=== PATIENT | female | born 1970 | race Caucasian/White ===

== ENCOUNTER 2017-09-02 20:32 | Inpatient (IN) | payer OTHER ==
[~2017-09-02] VITALS: Ht 167.6 cm; Wt 60.8 kg
[2017-09-02 21:10] VITALS: BP 142/87; PULSE 83; RESP 18; TEMP 98.7; O2SAT 98
--- NOTE | 2017-09-02 21:14 | PD ---
HPI Chief Complaint: Psychiatric Symptoms Time Seen by Provider: 21:01 Travel History International Travel<30 days: No Contact w/Intl Traveler<30days: No Traveled to known affect area: No History of Present Illness HPI 47-year-old female with no significant medical history presents emergency department for evaluation of altered mental status. Patient is accompanied by her and daughter. The patient is a poor historian. She has a bizarre affect and is not making any sense when she speaks. She is talking about being a witch. She talks about [employer] GODDESSES. She tells me that she is here to heal. Per the family, patient smokes marijuana daily. She consumes alcohol occasionally. She has no psychiatric or medical history however she does have schizophrenia in her family. Patient denies any pain. Denies any recent illnesses. No other symptoms to report. PFSH Past Medical History Medical History: Denies Significant Hx Cancer: No Cardiovascular Problems: No Diabetes: No Endocrine: No Genitourinary: No Hepatitis: No Hiatal Hernia: No Immune Disorder: No Musculoskeletal: No Neurologic: No Psychiatric: No Reproductive: Yes (FIBROIDS) Respiratory: No Thyroid Disease: No : 1 Para: 1 Past Surgical History Abdominal Surgery: Yes (LAP SUE AND APPENDECTOMY) Appendectomy: Yes Body Medical Devices: NONE Cholecystectomy: Yes Social History Alcohol Use: Yes (SOCIALLY) Tobacco Use: No Allergies-Medications (Allergen,Severity, Reaction): Coded Allergies: erythromycin base (Unverified Allergy, Mild, 01/02/17) Reported Meds & Prescriptions Reported Meds & Active Scripts Active No Active Prescriptions or Reported Medications Review of Systems ROS Limitations: Altered Mental Status Except as stated in HPI: all other systems reviewed are Neg Physical Exam Exam Limitations: Altered Mental Status Narrative GENERAL: Well-nourished female patient, with bizarre affect, in no acute distress. SKIN: Focused skin assessment warm/dry. HEAD: Atraumatic. Normocephalic. EYES: Pupils equal and round. No scleral icterus. No injection or drainage. ENT: No nasal bleeding or discharge. Mucous membranes pink and moist. NECK: Trachea midline. No JVD. CARDIOVASCULAR: Regular rate and rhythm. No murmur appreciated. RESPIRATORY: No accessory muscle use. Clear to auscultation. Breath sounds equal bilaterally. GASTROINTESTINAL: Abdomen soft, non-tender, nondistended. Hepatic and splenic margins not palpable. MUSCULOSKELETAL: No obvious deformities. No clubbing. No cyanosis. No edema. NEUROLOGICAL: Awake and alert. No obvious cranial nerve deficits. Motor grossly within normal limits. Normal speech. Data Data Last Documented VS Vital Signs Date Time Temp Pulse Resp B/P (MAP) Pulse Ox O2 Delivery O2 Flow Rate FiO2 09/03/17 02:59 98.1 100 18 163/83 (109) 100 Room Air Orders Orders Complete Blood Count With Diff (09/02/17 21:01) Comprehensive Metabolic Panel (09/02/17 21:01) Thyroid Stimulating Hormone (09/02/17 21:01) Psych Screen (09/02/17 21:01) Drug Screen, Random Urine (09/02/17 21:01) Alcohol (Ethanol) (09/02/17 21:01) Ct Brain W/O Iv Contrast(Rout) (09/02/17 ) Urinalysis - C+S If Indicated (09/02/17 21:05) Potassium Chloride Powder (Kcl Powder) (09/02/17 22:30) Olanzapine Inj (Zyprexa Inj) (09/02/17 23:45) Diet Regular Basic (09/03/17 Breakfast) Labs Laboratory Tests Test 09/02/17 21:19 09/03/17 01:51 White Blood Count 8.2 TH/MM3 Red Blood Count 4.19 MIL/MM3 Hemoglobin 13.3 GM/DL Hematocrit 38.7 % Mean Corpuscular Volume 92.4 FL Mean Corpuscular Hemoglobin 31.8 PG Mean Corpuscular Hemoglobin Concent 34.4 % Red Cell Distribution Width 12.8 % Platelet Count 222 TH/MM3 Mean Platelet Volume 8.3 FL Neutrophils (%) (Auto) 80.7 % Lymphocytes (%) (Auto) 9.6 % Monocytes (%) (Auto) 9.1 % Eosinophils (%) (Auto) 0.2 % Basophils (%) (Auto) 0.4 % Neutrophils # (Auto) 6.6 TH/MM3 Lymphocytes # (Auto) 0.8 TH/MM3 Monocytes # (Auto) 0.7 TH/MM3 Eosinophils # (Auto) 0.0 TH/MM3 Basophils # (Auto) 0.0 TH/MM3 CBC Comment DIFF FINAL Differential Comment Blood Urea Nitrogen 6 MG/DL Creatinine 0.78 MG/DL Random Glucose 124 MG/DL Total Protein 7.4 GM/DL Albumin 4.3 GM/DL Calcium Level 8.6 MG/DL Alkaline Phosphatase 45 U/L Aspartate Amino Transf (AST/SGOT) 18 U/L Alanine Aminotransferase (ALT/SGPT) 21 U/L Total Bilirubin 0.9 MG/DL Sodium Level 140 MEQ/L Potassium Level 2.9 MEQ/L Chloride Level 106 MEQ/L Carbon Dioxide Level 25.1 MEQ/L Anion Gap 9 MEQ/L Estimat Glomerular Filtration Rate 79 ML/MIN Thyroid Stimulating Hormone 3rd Gen 1.530 uIU/ML Ethyl Alcohol Level LESS THAN 3 MG/DL Urine Color YELLOW Urine Turbidity CLEAR Urine pH 6.0 Urine Specific [place] 1.008 Urine Protein NEG mg/dL Urine Glucose (UA) NEG mg/dL Urine Ketones 10 mg/dL Urine Occult Blood NEG Urine Nitrite NEG Urine Bilirubin NEG Urine Urobilinogen LESS THAN 2.0 MG/DL Urine Leukocyte Esterase NEG Urine RBC 2 /hpf Urine WBC 1 /hpf Urine Squamous Epithelial Cells 8 /hpf Urine Bacteria RARE /hpf Urine Mucus FEW /lpf Microscopic Urinalysis Comment CULT NOT INDICATED Urine Opiates Screen NEG Urine Barbiturates Screen NEG Urine Amphetamines Screen NEG Urine Benzodiazepines Screen NEG Urine Cocaine Screen NEG Urine Cannabinoids Screen POS MDM Medical Decision Making Medical Screen Exam Complete: Yes Emergency Medical Condition: Yes Medical Record Reviewed: Yes Differential Diagnosis Mood disorder versus personality disorder versus electrolyte abnormality versus intracranial etiology versus substance abuse versus psychosis NOS Narrative Course 47-year-old female presents emergency department for evaluation of altered mental status. Patient appears without distress. She is a poor historian, she appears to be not connected with reality currently she is speaking about being here to heal she is talked about fictitious characters. Lab work and CT imaging the brain is ordered as patient has no reported psychiatric history. Laboratory Tests Test 09/02/17 21:19 09/03/17 01:51 White Blood Count 8.2 TH/MM3 Red Blood Count 4.19 MIL/MM3 Hemoglobin 13.3 GM/DL Hematocrit 38.7 % Mean Corpuscular Volume 92.4 FL Mean Corpuscular Hemoglobin 31.8 PG Mean Corpuscular Hemoglobin Concent 34.4 % Red Cell Distribution Width 12.8 % Platelet Count 222 TH/MM3 Mean Platelet Volume 8.3 FL Neutrophils (%) (Auto) 80.7 % Lymphocytes (%) (Auto) 9.6 % Monocytes (%) (Auto) 9.1 % Eosinophils (%) (Auto) 0.2 % Basophils (%) (Auto) 0.4 % Neutrophils # (Auto) 6.6 TH/MM3 Lymphocytes # (Auto) 0.8 TH/MM3 Monocytes # (Auto) 0.7 TH/MM3 Eosinophils # (Auto) 0.0 TH/MM3 Basophils # (Auto) 0.0 TH/MM3 CBC Comment DIFF FINAL Differential Comment Blood Urea Nitrogen 6 MG/DL Creatinine 0.78 MG/DL Random Glucose 124 MG/DL Total Protein 7.4 GM/DL Albumin 4.3 GM/DL Calcium Level 8.6 MG/DL Alkaline Phosphatase 45 U/L Aspartate Amino Transf (AST/SGOT) 18 U/L Alanine Aminotransferase (ALT/SGPT) 21 U/L Total Bilirubin 0.9 MG/DL Sodium Level 140 MEQ/L Potassium Level 2.9 MEQ/L Chloride Level 106 MEQ/L Carbon Dioxide Level 25.1 MEQ/L Anion Gap 9 MEQ/L Estimat Glomerular Filtration Rate 79 ML/MIN Thyroid Stimulating Hormone 3rd Gen 1.530 uIU/ML Ethyl Alcohol Level LESS THAN 3 MG/DL Urine Color YELLOW Urine Turbidity CLEAR Urine pH 6.0 Urine Specific [place] 1.008 Urine Protein NEG mg/dL Urine Glucose (UA) NEG mg/dL Urine Ketones 10 mg/dL Urine Occult Blood NEG Urine Nitrite NEG Urine Bilirubin NEG Urine Urobilinogen LESS THAN 2.0 MG/DL Urine Leukocyte Esterase NEG Urine RBC 2 /hpf Urine WBC 1 /hpf Urine Squamous Epithelial Cells 8 /hpf Urine Bacteria RARE /hpf Urine Mucus FEW /lpf Microscopic Urinalysis Comment CULT NOT INDICATED Urine Opiates Screen NEG Urine Barbiturates Screen NEG Urine Amphetamines Screen NEG Urine Benzodiazepines Screen NEG Urine Cocaine Screen NEG Urine Cannabinoids Screen POS Patient was in CT and she jumped out of the machine and ran out of the room. She is very agitated and anxious. Patient will be medicated to help her to calm down so CT can be ordered for medical clearance. Patient has tried to leave. Patient is unable to determine if further evaluation is necessary and if she does leave she poses great risk of harm to herself. She will be placed under Mason act at this time. Last Impressions Head CT 09/02/17 0000 Signed Impressions: Service Date/Time: Sunday, September 03, 2017 00:43 - CONCLUSION: Negative noncontrast head CT. Nik Navas MD Findings are discussed with the family. Patient is medically cleared to undergo psychiatric screening for further evaluation and disposition. Diagnosis Primary Impression: Unspecified psychosis Scripts No Active Prescriptions or Reported Meds Condition: Stable Megan Hinkle Sep 02, 2017 21:14
[2017-09-02 21:40] LABS: AUTOMATED NEUTROPHIL # 6.6 TH/MM3 (1.8-7.7); BASOPHIL % 0.4 % (0.0-2.0); EOSINOPHIL % 0.2 % (0.0-4.0); HEMATOCRIT 38.7 % (35.0-46.0); HEMOGLOBIN 13.3 GM/DL (11.6-15.3); LYMPH % 9.6 % (9.0-44.0); LYMPHOCYTE # 0.8 TH/MM3 (1.0-4.8); MEAN CELL VOLUME 92.4 FL (80.0-100.0); MEAN CORPUSCULAR HEMOGLOBIN 31.8 PG (27.0-34.0); MEAN CORPUSCULAR HGB CONC 34.4 % (32.0-36.0); MEAN PLATELET VOLUME 8.3 FL (7.0-11.0); MONO % 9.1 % (0.0-8.0); MONOCYTE # 0.7 TH/MM3 (0-0.9); NEUT % 80.7 % (16.0-70.0); PLATELET COUNT 222 TH/MM3 (150-450); RED BLOOD COUNT 4.19 MIL/MM3 (4.00-5.30); RED CELL DISTRIBUTION WIDTH 12.8 % (11.6-17.2); WHITE BLOOD COUNT 8.2 TH/MM3 (4.0-11.0)
[2017-09-02 21:59] LABS: ALBUMIN 4.3 GM/DL (3.4-5.0); AST (GOT) 18 U/L (15-37); BICARBONATE 25.1 MEQ/L (21.0-32.0); BLOOD UREA NITROGEN 6 MG/DL (7-18); CALCIUM 8.6 MG/DL (8.5-10.1); CHLORIDE 106 MEQ/L (98-107); CREATININE 0.78 MG/DL (0.50-1.00); GLOMERULAR FILTRATION RATE 79 ML/MIN (>89); GLUCOSE,RANDOM 124 MG/DL (74-106); SODIUM (NA) 140 MEQ/L (136-145)
[2017-09-02 22:06] LABS: ALKALINE PHOSPHATASE 45 U/L (45-117); ALT (GPT) 21 U/L (10-53); TOTAL BILIRUBIN ADULT 0.9 MG/DL (0.2-1.0); TOTAL PROTEIN 7.4 GM/DL (6.4-8.2)
[2017-09-02] MEDS ORDERED: POTASSIUM CHLORIDE 20 MEQ PWD PACKET PO ONE (22:30)
[2017-09-02] MEDS ORDERED: OLANZapine IM 10 MG VIAL IM ONE (23:45)
--- NOTE | 2017-09-03 00:52 | RADRPT ---
EXAM DATE/TIME: 09/03/2017 00:43 [facility] COMPARISON: No previous studies available for comparison. INDICATIONS : Altered mental status. RADIATION DOSE: 35.14 CTDIvol (mGy) MEDICAL HISTORY : None SURGICAL HISTORY : None. ENCOUNTER: Initial ACUITY: 1 day PAIN SCALE: 0/10 LOCATION: cranial TECHNIQUE: Multiple contiguous axial images were obtained of the head. Using automated exposure control and adj ustment of the mA and/or kV according to patient size, radiation dose was kept as low as reasonably a chievable to obtain optimal diagnostic quality images. DICOM format image data is available electro nically for review and comparison. FINDINGS: CEREBRUM: The ventricles are normal for age. No evidence of midline shift, mass lesion, hemorrhage or acute in farction. No extra-axial fluid collections are seen. POSTERIOR FOSSA: The cerebellum and brainstem are intact. The 4th ventricle is midline. The cerebellopontine angle i s unremarkable. EXTRACRANIAL: The visualized portion of the orbits is intact. SKULL: The calvaria is intact. No evidence of skull fracture. CONCLUSION: Negative noncontrast head CT. Nik Navas MD on September 03, 2017 at 0:50 Board Certified Radiologist. This report was verified electronically.
[2017-09-03 02:00] LABS: BACTERIA, URINE RARE /hpf; BILIRUBIN, URINE NEG (NEG); BLOOD, URINE NEG (NEG); GLUCOSE,URINE NEG (NEG); KETONE, URINE 10 mg/dL (NEG); MUCUS URINE FEW /lpf (OCC); NITRITE,URINE NEG (NEG); SQUAMOUS EPITHELIAL CELL URINE 8 /hpf (0-5); URINE COLOR YELLOW (YELLW/STRAW); URINE LEUKOCYTE ESTERASE NEG (NEG)
[2017-09-03 02:59] VITALS: BP 163/83; PULSE 100; RESP 18; TEMP 98.1; O2SAT 100
[2017-09-03 06:52] VITALS: BP 127/74; PULSE 88; RESP 18; TEMP 98.6; O2SAT 99
[2017-09-03] MEDS ORDERED: MAGNESIUM HYDROXIDE SUSP 30 ML CUP PO PRN (09:30)
[2017-09-03] MEDS ORDERED: ACETAMINOPHEN 325 MG TAB PO PRN (09:30)
[2017-09-03] MEDS ORDERED: NICOTINE 21 MG/24 HR PATCH T-DERMAL PRN (09:30)
[2017-09-03] MEDS ORDERED: hydrOXYzine HCL 50 MG TAB PO PRN (09:30)
[2017-09-03] MEDS ORDERED: ALUMINUM/MAGNESIUM/SIMETH 30 ML CUP PO PRN (09:30)
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
[2017-09-03 11:01] VITALS: BP 139/82; PULSE 86; RESP 16; TEMP 98.4; O2SAT 97
[2017-09-03 18:01] LABS: BICARBONATE 27.3 MEQ/L (21.0-32.0); CALCIUM 9.5 MG/DL (8.5-10.1); CREATININE 0.97 MG/DL (0.50-1.00); MAGNESIUM 2.1 MG/DL (1.5-2.5)
[2017-09-03 18:06] VITALS: BP 127/87; PULSE 95; RESP 18; TEMP 98.6; O2SAT 94
[2017-09-03] MEDS: diphenhydrAMINE HCL 50 MG CAP PO PRN (21:26)
[2017-09-04 05:52] VITALS: BP 131/89; PULSE 75; TEMP 98.4; O2SAT 99
[2017-09-04] MEDS ORDERED: CYANOCOBALAMIN 1000 MCG/ML VIAL IM ONE (07:15)
[2017-09-04 07:26] LABS: CHOLESTEROL 136 MG/DL (120-200)
[2017-09-04 07:30] LABS: CHOLESTEROL/ HDL RATIO 1.69 RATIO; HDL CHOLESTEROL 80.4 MG/DL (40.0-60.0); LDL CHOLESTEROL 44 MG/DL (0-99); TRIGLYCERIDES 56 MG/DL (42-150)
[2017-09-04 10:36] LABS: HEMOGLOBIN A1C 5.1 % (4.3-6.0)
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
--- NOTE | 2017-09-04 15:44 | PD.CONS ---
HPI Service [facility] Consult Requested By Reason for Consult Further workup of vitamin B12 deficiency Primary Care Physician Derik Dalton MD Diagnoses: History of Present Illness Written by Carson Duarte, acting as scribe for Dr. Campoverde on 09/04/17 at 15:43. 47-year-old female with relatively no past medical history who presented to the emergency department on 09/02 accompanied by and daughter with reports of altered mental status. According to ER documentation patient had been talking about amazonians and goddesses. She has been admitted to medical psychiatry unit for further evaluation, [facility] consulted due to low vitamin D. Patient seen and examined in her room, she is alert, oriented, and cooperative. Patient is also able to provide past medical and surgical history. She reports that her diet has not been the best recently and also states that she is not big on eating meat. She does report using marijuana and will also drink about 2 drinks occasionally of alcohol. No other gastric surgery other than gallbladder and appendix removal. She also denies any history of GERD. She denies any numbness in her extremities. Repots she is feeling good and states "Im actually feeling great". Review of Systems Except as stated in HPI: all other systems reviewed are Neg Past Family Social History Allergies: Coded Allergies: erythromycin base (Unverified Allergy, Mild, 01/02/17) Past Medical History Fibroids Past Surgical History Cholecystectomy Appendectomy Hysterectomy 3 knee surgeries Reported Medications Reported Meds & Active Scripts Active No Active Prescriptions or Reported Medications Active Ordered Medications Current Medications Medications (Trade) Dose Ordered Sig/Zulay Route Start Time Stop Time Status Last Admin (Benadryl) 50 mg HS PRN PO 09/03/17 09:30 09/03/17 21:26 (Tylenol) 650 mg Q4H PRN PO 09/03/17 09:30 (Milk Of Magnesia Liq) 30 ml DAILY PRN PO 09/03/17 09:30 (Mag-Al Plus Susp Liq) 30 ml Q6H PRN PO 09/03/17 09:30 (Habitrol 21 Mg Patch.24 Hr) 1 patch DAILY PRN T-DERMAL 09/03/17 09:30 (Atarax) 25 mg Q4H PRN PO 09/03/17 09:30 (Vitamin B12 Inj) 1,000 mcg DAILY IM 09/05/17 09:00 09/10/17 12:00 (Vitamin B12) 1,000 mcg DAILY PO 09/11/17 09:00 Family History Mother: Leukemia Father: "Eye stroke" Social History Denies any tobacco use Endorses marijuana use Alcohol use: 2 drinks occasionally Physical Exam Vital Signs Vital Signs Date Time Temp Pulse Resp B/P (MAP) Pulse Ox O2 Delivery O2 Flow Rate FiO2 09/04/17 05:52 98.4 75 131/89 (103) 99 09/03/17 18:06 98.6 95 18 127/87 (100) 94 Physical Exam GENERAL: This is a well-nourished, well-developed patient, in no apparent distress. SKIN: No rashes, ecchymoses or lesions. Cool and dry. HEAD: Atraumatic. Normocephalic. EYES: Pupils equal round and reactive. Extraocular motions intact. No scleral icterus. No injection or drainage. ENT: Nose without bleeding, purulent drainage. Throat without erythema. Uvula midline. Airway patent. NECK: Trachea midline. No JVD or lymphadenopathy. Supple, nontender. CARDIOVASCULAR: Regular rate and rhythm without murmurs, gallops, or rubs. RESPIRATORY: Clear to auscultation. Breath sounds equal bilaterally. No wheezes , rales, or rhonchi. GASTROINTESTINAL: Abdomen soft, non-tender, nondistended. No palpable masses. No guarding. MUSCULOSKELETAL: Extremities without clubbing, cyanosis, or edema. No joint tenderness, effusion, or edema noted. No calf tenderness. Negative Homans sign bilaterally. NEUROLOGICAL: Awake and alert. Cranial nerves II through XII grossly intact. Motor and sensory grossly within normal limits. Five out of 5 muscle strength in all muscle groups. Normal speech. Laboratory Laboratory Tests Test 09/03/17 17:28 09/04/17 05:51 09/04/17 12:49 Blood Urea Nitrogen 12 Creatinine 0.97 Random Glucose 105 Calcium Level 9.5 Magnesium Level 2.1 Sodium Level 139 Potassium Level 3.8 Chloride Level 105 Carbon Dioxide Level 27.3 Anion Gap 7 Estimat Glomerular Filtration Rate 62 Ammonia 19 Vitamin B12 Level 190 HIV (1&2) Ab and P24 Ag, 4th Gener NONREACTIVE Triglycerides Level 56 Cholesterol Level 136 LDL Cholesterol 44 HDL Cholesterol 80.4 Cholesterol/HDL Ratio 1.69 Folate 14.4 Result Diagram: 09/02/17211816/18 1728 Imaging Last Impressions Head CT 09/02/17 0000 Signed Impressions: Service Date/Time: Sunday, September 03, 2017 00:43 - CONCLUSION: Negative noncontrast head CT. Nik Navas MD Assessment and Plan Assessment and Plan 47-year-old female who presents to the emergency department due to altered mental status, no prior psychiatric history. [facility] consulted due to low vitamin B12 levels. Psychotic disorder -Treatment per primary team, greatly appreciated -Acts appropriate during interview Vitamin B12 deficiency -B12 level 190, folate 14.4 -Patient appears asymptomatic, CBC reviewed with no macrocytosis or anemia. -Low levels likely due to diet poor in meats/B12 -Check intrinsic factor and parietal cell antibodies -Patient provided with Cyanocobalamin 1000 MCG's IM 1 today -Continue Cyanocobalamin 1000 MCG's IM 7 days then transition to 1,000mcg PO daily -Can follow-up with PCP for ongoing monitoring, discussed with patient. DVT prophylaxis-ambulation Discussed with nurse and patient. Thank you for this consultation, will continue to follow along. Discussed Condition With This note was transcribed by suzanne Duarte. I, Dr. Lemuel Campoverde personally performed the history, physical exam, and medical decision making; and confirmed the accuracy of the information in the transcribed note. Authenticated by Dr. Lemuel Campoverde on 09/04/17 at 22:21. Carson Duarte Sep 04, 2017 15:44 Lemuel Campoverde MD Sep 04, 2017 22:21
[2017-09-04 17:55] VITALS: BP 161/91; PULSE 94; RESP 16; TEMP 98.1; O2SAT 100
[2017-09-04] MEDS: diphenhydrAMINE HCL 50 MG CAP PO PRN (20:46)
[2017-09-05 05:37] VITALS: BP 125/77; PULSE 91; RESP 21; TEMP 98.4; O2SAT 98
[2017-09-05] MEDS ORDERED: CYANOCOBALAMIN 1000 MCG/ML VIAL IM SCH (09:00)
[2017-09-05] MEDS ORDERED: VITA10002 PO (11:01)
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
[2017-09-09 03:50] LABS: PARIETAL CELL TOTAL AUTOABS LESS THAN 20.0 U
[2017-09-11] MEDS ORDERED: CYANOCOBALAMIN 1,000 MCG TAB PO SCH (09:00)
== END 2017-09-05 12:15 | disposition home or self-care (01) | DRG 885 ==
LOC: NEPD 20:32 → NEDA 09-03 09:29 → H250 09-03 10:00 → H260 09-04 14:05
PROVIDERS: ADMIT Psychiatry & Neurology Psychiatry; ATTEND Psychiatry & Neurology Psychiatry
DX: F23 Brief psychotic disorder (principal); F12.10 Cannabis abuse, uncomplicated; E53.8 Deficiency of other specified B group vitamins
CPT/HCPCS: 70450; 80048; 80053; 80061; 80307; 81001; 82140; 82607; 82746; 83036; 83516; 83735; 84443; 85025; 85652; 86038; 86340; 86592; 86703; 96372; J3420; Q0163